=== PATIENT | male | born 1975 ===

== ENCOUNTER 2022-08-25 09:28 | Inpatient (IN) ==
[2022-08-25] MEDS ORDERED: Iodixanol (CONTRAST) 320 MG/ML 100 ML SDV IV ONE (10:03)
[2022-08-25] MEDS ORDERED: Lorazepam PYXIS KEY PRN (10:34)
[2022-08-25] MEDS ORDERED: LORazepam 2 mg VIAL 1 ml IV PUSH ONE (10:34)
[2022-08-25] MEDS ORDERED: LORazepam 2 mg VIAL 1 ml ONE (10:34)
[2022-08-25] MEDS ORDERED: levETIRAcetam IV 2,000 MG in NS 0.9% 100 ml BAG 100 ML IVPB ONE (10:37)
[2022-08-25] MEDS ORDERED: Morphine 4 MG/ML VIAL (1 ml) IV ONE ×2 (10:41→11:43)
[2022-08-25 11:02] LABS: INR 1.22 (0.88-1.18)
[2022-08-25 11:24] LABS: Albumin 4.2 g/dL (3.2-5.2); Albumin/Globulin Ratio 1.8 (1-3); Creatinine, Serum 0.73 mg/dL (0.67-1.17); Globulin 2.4 g/dL (2-4); HDL Cholesterol 34.6 mg/dL; Potassium 3.6 mmol/L (3.5-5.0); Total Bilirubin 0.6 mg/dL (0.2-1.0); Total Protein 6.6 g/dL (6.4-8.9); eGFR CKD-EPI 111.5 (>60)
[2022-08-25 11:28] LABS: ABS Lymphocytes 1.2 10^3/ul (1.0-4.8); ABS Monocytes 0.3 10^3/ul (0-0.8); ABS Neutrophils 2.1 10^3/ul (1.5-7.7); Eosinophil % 0.8 %; Hematocrit 40 % (42-52); Hemoglobin 13.2 g/dL (14.0-18.0); Lymphocyte % 33.4 %; Mean Corpuscular Hemoglobin 28 pg (27-31); Mean Corpuscular Hgb Conc 33 g/dL (31-36); Mean Corpuscular Volume 83 fL (80-94); Mean Platelet Volume 7.9 fL (7.4-10.4); Nucleated Red Blood Cells % 0.1; Platelet Count 172 10^3/uL (150-450); Red Blood Count 4.78 10^6 /uL (4.18-5.48); Red Cell Distribution Width 15 % (10-15); White Blood Count 3.7 10^3/uL (3.5-10.8)
[2022-08-25] MEDS ORDERED: Midazolam 2 mg/2 ml VIAL 1 mg/ml 2 ml VIAL (2 mg) ONE ×2 (11:44→15:03)
[2022-08-25] MEDS ORDERED: LEVETIRACETAM IVPB ONE (12:00)
[2022-08-25] MEDS ORDERED: NS 0.9% IVPB ONE (12:00)
[2022-08-25] MEDS ORDERED: Propofol 10 MG/ML 20 ML BTL ONE ×3 (13:31→15:02)
[2022-08-25] MEDS ORDERED: Phenylephrine 40 mcg/mL 10mL (400mcg) SYRINGE ONE ×2 (13:47→16:18)
[2022-08-25] MEDS ORDERED: Lidocaine 2% PF 5 ML VIAL ONE (14:59)
[2022-08-25] MEDS ORDERED: Sevoflurane BOTTLE ONE (14:59)
[2022-08-25] MEDS ORDERED: Ondansetron 4 mg VIAL 2 MG/ML 2 ml VIAL ONE (15:02)
[2022-08-25] MEDS ORDERED: fentaNYL 250 mcg/5 ml 50 MCG/ML 5 ml VIAL (250 MCG) ONE (15:02)
[2022-08-25] MEDS ORDERED: Dexamethasone IV 4 MG/ML VIAL 1 ml VIAL ONE (15:02)
[2022-08-25] MEDS ORDERED: Rocuronium 50 mg VIAL 10 mg/ml 5 ml VIAL (50 mg) ONE (15:03)
[2022-08-25] MEDS ORDERED: Bupivacaine 0.25% EPI 200,000 30 ML SDV ONE (15:15)
[2022-08-25] MEDS ORDERED: ceFAZolin VIAL VIAL ONE (16:02)
[2022-08-25] MEDS ORDERED: WATER ONE (16:02)
[2022-08-25] MEDS ORDERED: [UNRECOGNIZED DRUG - OTHER] ONE (16:02)
[2022-08-25] MEDS ORDERED: Phenylephrine IV 10 MG/ML 1 ml VIAL ONE (16:18)
[2022-08-25] MEDS ORDERED: Naloxone 0.4 mg VIAL 0.4 mg/ml 1 ml VIAL IV PUSH PRN (18:04)
[2022-08-25] MEDS ORDERED: Acetaminophen IV 1 GM/100ML 1,000 MG/100 ML BAG IV PRN (18:14)
[2022-08-25] MEDS ORDERED: fentaNYL 100 mcg/2 ml 50 MCG/ML VIAL IV PRN (18:33)
[2022-08-25] MEDS ORDERED: Naloxone 0.4 mg VIAL 0.4 mg/ml 1 ml VIAL IV PRN (18:33)
[2022-08-25] MEDS ORDERED: Ondansetron 4 mg VIAL 2 MG/ML 2 ml VIAL IV PRN (18:33)
[2022-08-25] MEDS: NS 0.9% 1000 ml BAG 1,000 ML IV SCH (18:43)
[2022-08-25] MEDS: HYDROmorphone PCA 20 MG/20 ML PCA.SYRING PCA SCH ×2 (19:05→20:29)
[2022-08-25] MEDS ORDERED: Acetaminophen IV 1 GM/100ML 1,000 MG/100 ML BAG IV SCH (23:00)
[2022-08-26] MEDS: levETIRAcetam IV 1,500 MG in NS 0.9% 100 ml BAG 100 ML IVPB SCH ×2 (00:22→11:41)
[2022-08-26 04:11] LABS: Urine Appearance Clear; Urine Bilirubin Negative (Negative); Urine Blood Negative (Negative); Urine Color Yellow; Urine Glucose Negative (Negative); Urine Ketones 1+ (Negative); Urine Nitrite Negative (Negative); Urine Protein Negative (Negative); Urine Specific Gravity 1.021 (1.002-1.030); Urine Urobilinogen Negative (Negative)
[2022-08-26] MEDS: NS 0.9% 1000 ml BAG 1,000 ML IV SCH ×2 (05:50→14:09)
[2022-08-26 06:05] LABS: ABS Lymphocytes 0.8 10^3/ul (1.0-4.8); ABS Monocytes 0.5 10^3/ul (0-0.8); ABS Neutrophils 7.2 10^3/ul (1.5-7.7); Hematocrit 38 % (42-52); Hemoglobin 12.7 g/dL (14.0-18.0); Lymphocyte % 9.4 %; Mean Corpuscular Hemoglobin 28 pg (27-31); Mean Corpuscular Hgb Conc 33 g/dL (31-36); Mean Corpuscular Volume 83 fL (80-94); Mean Platelet Volume 8.2 fL (7.4-10.4); Platelet Count 181 10^3/uL (150-450); Red Blood Count 4.58 10^6 /uL (4.18-5.48); Red Cell Distribution Width 15 % (10-15); White Blood Count 8.5 10^3/uL (3.5-10.8)
[2022-08-26 06:22] LABS: Calcium 8.6 mg/dL (8.6-10.3); Creatinine, Serum 0.68 mg/dL (0.67-1.17); Potassium 4.1 mmol/L (3.5-5.0); eGFR CKD-EPI 113.9 (>60)
[2022-08-26] MEDS ORDERED: Sulfur Hexaflouride MICROSPHR 25 MG VIAL ONE (08:50)
[2022-08-26] MEDS: Pantoprazole VIAL 40 MG VIAL IV SCH (11:41)
[2022-08-26] MEDS ORDERED: FOSPHENYTOIN IVPB ONE (16:00)
[2022-08-26] MEDS ORDERED: NS 0.9% IVPB ONE (16:00)
[2022-08-26] MEDS ORDERED: levETIRAcetam 500 MG IVPREMIX 500 MG/100 ML BAG IV SCH (16:00)
[2022-08-26] MEDS ORDERED: LEVETIRACETAM IVPB SCH (21:00)
[2022-08-26] MEDS ORDERED: NS 0.9% IVPB SCH (21:00)
[2022-08-26] MEDS ORDERED: levETIRAcetam IV 2,000 MG in NS 0.9% 100 ml BAG 100 ML IVPB SCH (21:00)
[2022-08-26] MEDS: Phenytoin 100 mg ER CAP PO SCH (22:26)
[2022-08-27] MEDS: NS 0.9% 1000 ml BAG 1,000 ML IV SCH ×2 (00:25→09:00)
[2022-08-27] MEDS: Pantoprazole VIAL 40 MG VIAL IV SCH (07:55)
[2022-08-27] MEDS: Morphine 2 MG/ML SYRINGE IV PRN ×2 (11:56→14:46)
[2022-08-27 16:06] LABS: ABS Lymphocytes 1.4 10^3/ul (1.0-4.8); ABS Monocytes 0.8 10^3/ul (0-0.8); ABS Neutrophils 9.4 10^3/ul (1.5-7.7); Eosinophil % 0.1 %; Hematocrit 40 % (42-52); Hemoglobin 13.4 g/dL (14.0-18.0); Lymphocyte % 12.3 %; Mean Corpuscular Hemoglobin 28 pg (27-31); Mean Corpuscular Hgb Conc 33 g/dL (31-36); Mean Corpuscular Volume 85 fL (80-94); Nucleated Red Blood Cells % 0.1; Red Blood Count 4.74 10^6 /uL (4.18-5.48); Red Cell Distribution Width 15 % (10-15); White Blood Count 11.7 10^3/uL (3.5-10.8)
[2022-08-27 16:19] LABS: Blood Urea Nitrogen 6 mg/dL (6-24); CO2 Carbon Dioxide 27 mmol/L (22-32); Calcium 7.9 mg/dL (8.6-10.3); Chloride 103 mmol/L (101-111); Creatinine, Serum 0.62 mg/dL (0.67-1.17); Glucose 119 mg/dL (70-100); Sodium 135 mmol/L (135-145); eGFR CKD-EPI 117.2 (>60)
[2022-08-27 16:28] LABS: Anion Gap 5 mmol/L (2-11)
[2022-08-27 16:36] LABS: Mean Platelet Volume 8.6 fL (7.4-10.4); Platelet Count 229 10^3/uL (150-450)
[2022-08-27] MEDS ORDERED: NS 0.9% 1000 ml BAG 1,000 ML IV ONE (16:43)
[2022-08-27] MEDS: Phenytoin 100 mg ER CAP PO SCH ×2 (21:18→21:19)
[2022-08-27] MEDS: Ondansetron 4 mg VIAL 2 MG/ML 2 ml VIAL IV PRN (23:34)
[2022-08-28] MEDS: NS 0.9% 1000 ml BAG 1,000 ML IV SCH (00:02)
[2022-08-28 07:55] LABS: ABS Lymphocytes 0.9 10^3/ul (1.0-4.8); ABS Monocytes 0.8 10^3/ul (0-0.8); ABS Neutrophils 10.3 10^3/ul (1.5-7.7); Hematocrit 36 % (42-52); Hemoglobin 12.1 g/dL (14.0-18.0); Lymphocyte % 7.8 %; Mean Corpuscular Hemoglobin 28 pg (27-31); Mean Corpuscular Hgb Conc 34 g/dL (31-36); Mean Corpuscular Volume 84 fL (80-94); Mean Platelet Volume 7.7 fL (7.4-10.4); Platelet Count 171 10^3/uL (150-450); Red Blood Count 4.33 10^6 /uL (4.18-5.48); Red Cell Distribution Width 15 % (10-15); White Blood Count 12.1 10^3/uL (3.5-10.8)
[2022-08-28] MEDS: Pantoprazole VIAL 40 MG VIAL IV SCH (09:00)
[2022-08-28 09:14] LABS: Calcium 7.9 mg/dL (8.6-10.3); Potassium 3.4 mmol/L (3.5-5.0)
[2022-08-28 09:20] LABS: Creatinine, Serum 0.62 mg/dL (0.67-1.17); eGFR CKD-EPI 117.2 (>60)
[2022-08-28] MEDS: D5W 1/2 NS KCl 20 meq 1000 ml 1,000 ML IV SCH (11:51)
[2022-08-28] MEDS ORDERED: Potassium Chlor 20 meq TAB.ER PO ONE (17:00)
[2022-08-28 17:31] LABS: Magnesium 1.6 mg/dL (1.9-2.7)
[2022-08-28] MEDS ORDERED: Magnesium Sulfate IV 3 GM in NS 0.9% 100 ml BAG 100 ML IVPB ONE (18:45)
[2022-08-28] MEDS: Phenytoin 100 mg ER CAP PO SCH (21:21)
[2022-08-29] MEDS: D5W 1/2 NS KCl 20 meq 1000 ml 1,000 ML IV SCH ×2 (04:23→19:52)
[2022-08-29] MEDS: Ondansetron 4 mg VIAL 2 MG/ML 2 ml VIAL IV PRN ×2 (04:33→15:27)
[2022-08-29 06:18] LABS: Urine Appearance Clear; Urine Bilirubin Negative (Negative); Urine Blood Negative (Negative); Urine Color Amber; Urine Glucose Negative (Negative); Urine Ketones Trace (Negative); Urine Nitrite Negative (Negative); Urine Protein 2+(100 mg/dL) (Negative); Urine Specific Gravity 1.027 (1.002-1.030); Urine Urobilinogen Positive (Negative)
[2022-08-29 06:29] LABS: ABS Lymphocytes 0.9 10^3/ul (1.0-4.8); ABS Monocytes 0.9 10^3/ul (0-0.8); Eosinophil % 0.3 %; Hematocrit 35 % (42-52); Hemoglobin 11.5 g/dL (14.0-18.0); Lymphocyte % 13.7 %; Mean Corpuscular Hemoglobin 28 pg (27-31); Mean Corpuscular Hgb Conc 33 g/dL (31-36); Mean Corpuscular Volume 85 fL (80-94); Mean Platelet Volume 8.6 fL (7.4-10.4); Nucleated Red Blood Cells % 0.1; Platelet Count 192 10^3/uL (150-450); Red Blood Count 4.08 10^6 /uL (4.18-5.48); Red Cell Distribution Width 15 % (10-15); White Blood Count 6.9 10^3/uL (3.5-10.8)
[2022-08-29 06:36] LABS: INR 1.16 (0.88-1.18)
[2022-08-29 06:37] LABS: Urine Bacteria Absent (Absent); Urine Red Blood Cell Absent (Absent); Urine White Blood Cell Trace(0-5/hpf) (Absent)
[2022-08-29 06:55] LABS: Creatinine, Serum 0.63 mg/dL (0.67-1.17); Magnesium 2.3 mg/dL (1.9-2.7); Potassium 3.9 mmol/L (3.5-5.0); eGFR CKD-EPI 116.6 (>60)
[2022-08-29] MEDS: Pantoprazole VIAL 40 MG VIAL IV SCH (09:13)
[2022-08-29] MEDS ORDERED: Lactated Ringers 1000 ml BAG 1,000 ML IV ONE (15:55)
[2022-08-29] MEDS: Phenytoin 100 mg ER CAP PO SCH (19:56)
[2022-08-30] MEDS: Pantoprazole VIAL 40 MG VIAL IV SCH (08:22)
[2022-08-30] MEDS: D5W 1/2 NS KCl 20 meq 1000 ml 1,000 ML IV SCH (11:55)
[2022-08-30] MEDS ORDERED: D5W 1/2 NS KCl 20 meq 1000 ml 1,000 ML IV SCH (17:26)
[2022-08-30] MEDS ORDERED: Dextrose 50% Syringe 50 ml 25 GM/50 ML SYRINGE IV PUSH PRN (20:20)
[2022-08-30] MEDS: Phenytoin 100 mg ER CAP PO SCH (21:05)
[2022-08-31 04:02] LABS: Hematocrit 36 % (42-52); Hemoglobin 11.8 g/dL (14.0-18.0); Mean Corpuscular Hemoglobin 28 pg (27-31); Mean Corpuscular Hgb Conc 33 g/dL (31-36); Mean Corpuscular Volume 86 fL (80-94); Mean Platelet Volume 8.1 fL (7.4-10.4); Platelet Count 260 10^3/uL (150-450); Red Cell Distribution Width 15 % (10-15); White Blood Count 7.5 10^3/uL (3.5-10.8)
[2022-08-31 04:39] LABS: Blood Urea Nitrogen 22 mg/dL (6-24); CO2 Carbon Dioxide 20 mmol/L (22-32); Chloride 103 mmol/L (101-111); Creatinine, Serum 0.66 mg/dL (0.67-1.17); Glucose 163 mg/dL (70-100); Magnesium 1.7 mg/dL (1.9-2.7); Sodium 134 mmol/L (135-145)
[2022-08-31 04:42] LABS: Anion Gap 11 mmol/L (2-11)
[2022-08-31 07:49] LABS: ABS Lymphocytes 0.9 10^3/ul (1.0-4.8); ABS Monocytes 1.2 10^3/ul (0-0.8); ABS Neutrophils 5.3 10^3/ul (1.5-7.7); Lymphocyte % 12.1 %; Nucleated Red Blood Cells % 0.2
[2022-08-31] MEDS ORDERED: Magnesium Sulfate IV 3 GM in NS 0.9% 100 ml BAG 100 ML IVPB ONE (08:02)
[2022-08-31] MEDS: Pantoprazole VIAL 40 MG VIAL IV SCH (10:30)
[2022-08-31] MEDS ORDERED: Lactated Ringers 1000 ml BAG 1,000 ML IV ONE (12:27)
[2022-08-31] MEDS ORDERED: Iohexol 350 (CONTRAST) 500 ML MDV IV ONE (12:47)
[2022-08-31 12:52] LABS: Phenytoin < 2.5 mcg/mL (10-20)
[2022-08-31] MEDS ORDERED: Iohexol 300 (CONTRAST) 10 ML SDV IV ONE (13:47)
[2022-08-31] MEDS ORDERED: Iodixanol (CONTRAST) 320 MG/ML 100 ML SDV IV ONE (14:34)
[2022-08-31 17:23] LABS: Hematocrit 35 % (42-52); Hemoglobin 11.6 g/dL (14.0-18.0); Mean Corpuscular Hemoglobin 28 pg (27-31); Mean Corpuscular Hgb Conc 33 g/dL (31-36); Mean Corpuscular Volume 84 fL (80-94); Mean Platelet Volume 7.8 fL (7.4-10.4); Platelet Count 288 10^3/uL (150-450); Red Blood Count 4.16 10^6 /uL (4.18-5.48); Red Cell Distribution Width 16 % (10-15); White Blood Count 9.8 10^3/uL (3.5-10.8)
[2022-08-31 18:03] LABS: ABS Lymphocytes 1.3 10^3/ul (1.0-4.8); ABS Neutrophils 6.5 10^3/ul (1.5-7.7); Eosinophil % 0.1 %; Lymphocyte % 12.9 %; Nucleated Red Blood Cells % 0.1
[2022-08-31] MEDS ORDERED: Fosphenytoin 1,000 MG in NS 0.9% 50 ML 50 ML IVPB ONE (21:00)
[2022-08-31] MEDS: Enoxaparin 40 MG/0.4 ML SYR SUBCUT SCH (22:12)
[2022-09-01] MEDS: Phenytoin 100 mg ER CAP PO SCH ×2 (08:40→20:02)
[2022-09-01] MEDS: Pantoprazole VIAL 40 MG VIAL IV SCH (08:40)
[2022-09-01] MEDS ORDERED: Morphine 2 MG/ML SYRINGE IV PRN (14:17)
[2022-09-01] MEDS: Morphine 2 MG/ML SYRINGE IV PRN ×2 (17:42→20:03)
[2022-09-01] MEDS ORDERED: Iodixanol (CONTRAST) 320 MG/ML 100 ML SDV IV ONE (18:25)
[2022-09-01] MEDS: Enoxaparin 40 MG/0.4 ML SYR SUBCUT SCH (20:03)
[2022-09-02] MEDS: Morphine 2 MG/ML SYRINGE IV PRN ×6 (00:44→16:30)
[2022-09-02 09:34] LABS: Hematocrit 35 % (42-52); Hemoglobin 11.5 g/dL (14.0-18.0); Mean Corpuscular Hemoglobin 27 pg (27-31); Mean Corpuscular Hgb Conc 33 g/dL (31-36); Mean Corpuscular Volume 84 fL (80-94); Mean Platelet Volume 7.9 fL (7.4-10.4); Platelet Count 335 10^3/uL (150-450); Red Blood Count 4.18 10^6 /uL (4.18-5.48); Red Cell Distribution Width 16 % (10-15); White Blood Count 20.8 10^3/uL (3.5-10.8)
[2022-09-02 09:56] LABS: Calcium 8.2 mg/dL (8.6-10.3); Creatinine, Serum 0.68 mg/dL (0.67-1.17); Magnesium 1.9 mg/dL (1.9-2.7); Potassium 4.4 mmol/L (3.5-5.0); eGFR CKD-EPI 113.9 (>60)
[2022-09-02] MEDS: Phenytoin 100 mg ER CAP PO SCH ×2 (10:01→23:04)
[2022-09-02 10:03] LABS: CO2 Carbon Dioxide 16 mmol/L (22-32); Calcium 8.1 mg/dL (8.6-10.3); Chloride 100 mmol/L (101-111); Magnesium 1.9 mg/dL (1.9-2.7); Sodium 133 mmol/L (135-145)
[2022-09-02] MEDS: Pantoprazole VIAL 40 MG VIAL IV SCH (10:03)
[2022-09-02 10:06] LABS: C Reactive Protein 325.6 mg/L (<8.01)
[2022-09-02 10:07] LABS: Anisocytosis 1+; Polychromasia 1+
[2022-09-02 10:07] LABS: Anion Gap 17 mmol/L (2-11)
[2022-09-02 10:08] LABS: ABS Basophils 0.1 10^3/ul (0-0.2); ABS Lymphocytes 2.2 10^3/ul (1.0-4.8); ABS Monocytes 2.8 10^3/ul (0-0.8); ABS Neutrophils 15.7 10^3/ul (1.5-7.7); Eosinophil % 0.1 %; Lymphocyte % 10.6 %; Nucleated Red Blood Cells % 0.2
[2022-09-02 10:09] LABS: Blood Urea Nitrogen 28 mg/dL (6-24); Creatinine, Serum 0.69 mg/dL (0.67-1.17); Glucose 110 mg/dL (70-100); eGFR CKD-EPI 113.4 (>60)
[2022-09-02] MEDS: Ondansetron 4 mg VIAL 2 MG/ML 2 ml VIAL IV PRN ×2 (10:10→16:55)
[2022-09-02] MEDS ORDERED: Zosyn per Pharmacy NOTE FOLLOW UP SCH (11:00)
[2022-09-02] MEDS ORDERED: Lactated Ringers 1000 ml BAG 1,000 ML IV SCH (11:00)
[2022-09-02] MEDS ORDERED: Piperacillin/Tazobac ADVAN 3.375 GM in NS 0.9% 100 ml BAG 100 ML IV ONE (11:00)
[2022-09-02] MEDS ORDERED: Iodixanol (CONTRAST) 320 MG/ML 100 ML SDV IV ONE (11:52)
[2022-09-02 12:02] LABS: High Sensitivity Troponin 1 Hr 16 pg/mL (<20)
[2022-09-02] MEDS ORDERED: Lidocaine 1% MPF 5 ML VIAL INJ ONE (13:17)
[2022-09-02] MEDS ORDERED: Benzocaine (plain) Lozenge 15 MG MT PRN (16:44)
[2022-09-02] MEDS: ZOSYN 3.375 GM Q8H per EXTENDED INFUSION IV SCH ×2 (16:57→23:28)
[2022-09-02] MEDS: Enoxaparin 40 MG/0.4 ML SYR SUBCUT SCH (23:25)
[2022-09-02] MEDS: risperiDONE-M 1 mg Oradis TAB PO SCH (23:26)
[2022-09-03] MEDS: PHENYTOIN IV SCH ×4 (00:08→20:41)
[2022-09-03] MEDS: NS 0.9% IV SCH ×4 (00:08→20:41)
[2022-09-03 04:43] LABS: Urine Appearance Clear; Urine Bilirubin 1+ (Negative); Urine Blood Negative (Negative); Urine Color Amber; Urine Glucose Negative (Negative); Urine Ketones 1+ (Negative); Urine Nitrite Negative (Negative); Urine Protein 1+(30 mg/dL) (Negative); Urine Specific Gravity 1.036 (1.002-1.030); Urine Urobilinogen Negative (Negative)
[2022-09-03 05:00] LABS: Urine Bacteria Absent (Absent); Urine Red Blood Cell Absent (Absent); Urine Sperm Present (Absent); Urine Squamous Epithelial Cell Present (Absent); Urine White Blood Cell Trace(0-5/hpf) (Absent); Urine Yeast Present (Absent)
[2022-09-03 06:53] LABS: Hematocrit 32 % (42-52); Hemoglobin 10.6 g/dL (14.0-18.0); Mean Corpuscular Hemoglobin 28 pg (27-31); Mean Corpuscular Hgb Conc 33 g/dL (31-36); Mean Corpuscular Volume 85 fL (80-94); Mean Platelet Volume 7.9 fL (7.4-10.4); Platelet Count 331 10^3/uL (150-450); Red Blood Count 3.72 10^6 /uL (4.18-5.48); Red Cell Distribution Width 16 % (10-15); White Blood Count 16.5 10^3/uL (3.5-10.8)
[2022-09-03 06:54] LABS: ABS Lymphocytes 1.9 10^3/ul (1.0-4.8); ABS Neutrophils 12.5 10^3/ul (1.5-7.7); Eosinophil % 0.2 %; Lymphocyte % 11.6 %; Nucleated Red Blood Cells % 0.1
[2022-09-03 07:22] LABS: High Sens Troponin Baseline 11 pg/mL (<20)
[2022-09-03 07:42] LABS: Anion Gap 9 mmol/L (2-11); Blood Urea Nitrogen 23 mg/dL (6-24); C Reactive Protein 372.21 mg/L (<8.01); CO2 Carbon Dioxide 27 mmol/L (22-32); Chloride 98 mmol/L (101-111); Creatinine, Serum 0.73 mg/dL (0.67-1.17); Glucose 77 mg/dL (70-100); Phenytoin < 2.5 mcg/mL (10-20); Potassium 3.9 mmol/L (3.5-5.0); Sodium 134 mmol/L (135-145); eGFR CKD-EPI 111.5 (>60)
[2022-09-03] MEDS: Morphine 2 MG/ML SYRINGE IV PRN ×4 (07:45→20:41)
[2022-09-03] MEDS: ZOSYN 3.375 GM Q8H per EXTENDED INFUSION IV SCH ×2 (08:37→16:53)
[2022-09-03] MEDS: Pantoprazole VIAL 40 MG VIAL IV SCH (08:37)
[2022-09-03] MEDS ORDERED: Lactated Ringers 1000 ml BAG 1,000 ML IV ONE (10:27)
[2022-09-03] MEDS: risperiDONE-M 1 mg Oradis TAB PO SCH (10:27)
[2022-09-03] MEDS ORDERED: NS 0.9% 1000 ml BAG 1,000 ML IV SCH (12:45)
[2022-09-03] MEDS ORDERED: NS 0.9% 1000 ml BAG 1,000 ML IV ONE (19:10)
[2022-09-03] MEDS ORDERED: Acetaminophen IV 1 GM/100ML 1,000 MG/100 ML BAG IV PRN (19:44)
[2022-09-03] MEDS: Enoxaparin 40 MG/0.4 ML SYR SUBCUT SCH (20:42)
[2022-09-03] MEDS ORDERED: Lactated Ringers 1000 ml BAG 1,000 ML IV SCH (22:00)
[2022-09-03] MEDS ORDERED: ZOSYN 3.375 GM Q8H per EXTENDED INFUSION IV SCH (23:00)
[2022-09-04] MEDS: NS 0.9% IV SCH ×3 (01:02→17:27)
[2022-09-04] MEDS: PHENYTOIN IV SCH ×3 (01:02→17:27)
[2022-09-04] MEDS: ZOSYN 3.375 GM Q6H - Intermittant 30 min Infusion IV SCH ×5 (01:03→17:48)
[2022-09-04] MEDS ORDERED: Lactated Ringers 1000 ml BAG 1,000 ML IV SCH (04:05)
[2022-09-04] MEDS: Morphine 2 MG/ML SYRINGE IV PRN ×6 (06:36→21:49)
[2022-09-04] MEDS: Pantoprazole VIAL 40 MG VIAL IV SCH (08:33)
[2022-09-04 08:36] LABS: Anion Gap 11 mmol/L (2-11); CO2 Carbon Dioxide 22 mmol/L (22-32); Calcium 7.6 mg/dL (8.6-10.3); Chloride 101 mmol/L (101-111); Potassium 3.7 mmol/L (3.5-5.0); Sodium 134 mmol/L (135-145)
[2022-09-04 08:42] LABS: Blood Urea Nitrogen 12 mg/dL (6-24); C Reactive Protein 318.23 mg/L (<8.01); Creatinine, Serum 0.52 mg/dL (0.67-1.17); Glucose 63 mg/dL (70-100); Phenytoin < 2.5 mcg/mL (10-20); eGFR CKD-EPI 123.6 (>60)
[2022-09-04] MEDS ORDERED: Iodixanol (CONTRAST) 320 MG/ML 100 ML SDV IV ONE (09:16)
[2022-09-04] MEDS ORDERED: Iodixanol (CONTRAST) 320 MG/ML 100 ML SDV IV SCH (09:16)
[2022-09-04] MEDS ORDERED: NS 0.9% 1000 ml BAG 1,000 ML IV SCH (10:00)
[2022-09-04] MEDS: Fosphenytoin 100 MG in NS 0.9% 50 ML IVPB SCH ×2 (14:56→20:43)
[2022-09-04] MEDS ORDERED: PPN (PERIPHERAL) 24 HR with D10W 1000 ml BAG 1,000 ML, Amino Acid Infusion 10% 850 ML, ... IV SCH (17:00)
[2022-09-04] MEDS: NS 0.9% 1000 ml BAG 1,000 ML IV SCH (17:48)
[2022-09-04 18:09] LABS: Hematocrit 28 % (42-52); Mean Corpuscular Hemoglobin 27 pg (27-31); Mean Corpuscular Hgb Conc 32 g/dL (31-36); Mean Corpuscular Volume 85 fL (80-94); Mean Platelet Volume 7.3 fL (7.4-10.4); Platelet Count 332 10^3/uL (150-450); Red Blood Count 3.33 10^6 /uL (4.18-5.48); Red Cell Distribution Width 16 % (10-15); White Blood Count 8.2 10^3/uL (3.5-10.8)
[2022-09-04 19:03] LABS: ABS Lymphocytes 1.9 10^3/ul (1.0-4.8); ABS Monocytes 0.8 10^3/ul (0-0.8); ABS Neutrophils 5.5 10^3/ul (1.5-7.7); Eosinophil % 0.3 %; Lymphocyte % 23.3 %; Nucleated Red Blood Cells % 0.2
[2022-09-04] MEDS: Enoxaparin 40 MG/0.4 ML SYR SUBCUT SCH (20:50)
[2022-09-05] MEDS: ZOSYN 3.375 GM Q6H - Intermittant 30 min Infusion IV SCH ×4 (00:09→17:57)
[2022-09-05] MEDS: Morphine 2 MG/ML SYRINGE IV PRN ×3 (01:52→20:03)
[2022-09-05] MEDS: Fosphenytoin 100 MG in NS 0.9% 50 ML IVPB SCH ×4 (02:34→22:06)
[2022-09-05 06:42] LABS: Hematocrit 28 % (42-52); Hemoglobin 9.1 g/dL (14.0-18.0); Mean Corpuscular Hemoglobin 28 pg (27-31); Mean Corpuscular Hgb Conc 33 g/dL (31-36); Mean Corpuscular Volume 86 fL (80-94); Mean Platelet Volume 7.5 fL (7.4-10.4); Platelet Count 301 10^3/uL (150-450); Red Blood Count 3.21 10^6 /uL (4.18-5.48); Red Cell Distribution Width 16 % (10-15); White Blood Count 7.8 10^3/uL (3.5-10.8)
[2022-09-05 06:43] LABS: ABS Lymphocytes 1.4 10^3/ul (1.0-4.8); ABS Monocytes 0.8 10^3/ul (0-0.8); ABS Neutrophils 5.5 10^3/ul (1.5-7.7); Eosinophil % 0.3 %; Lymphocyte % 18.4 %; Nucleated Red Blood Cells % 0.3
[2022-09-05 07:10] LABS: Albumin 2.2 g/dL (3.2-5.2); Calcium 7.3 mg/dL (8.6-10.3); Creatinine, Serum 0.39 mg/dL (0.67-1.17); Globulin 2.3 g/dL (2-4); Magnesium 1.6 mg/dL (1.9-2.7); Phosphorus 3.6 mg/dL (2.5-5.0); Potassium 3.6 mmol/L (3.5-5.0); Total Bilirubin 0.6 mg/dL (0.2-1.0); Total Protein 4.5 g/dL (6.4-8.9); eGFR CKD-EPI 134.8 (>60)
[2022-09-05] MEDS: PHENYTOIN IV SCH ×2 (07:12→07:13)
[2022-09-05] MEDS: NS 0.9% IV SCH ×2 (07:12→07:13)
[2022-09-05] MEDS: Pantoprazole VIAL 40 MG VIAL IV SCH (08:10)
[2022-09-05] MEDS ORDERED: Magnesium Sulfate 2 gm BAG 2 GM/50 ML BAG IVPB ONE (09:03)
[2022-09-05] MEDS: NS 0.9% 1000 ml BAG 1,000 ML IV SCH (09:45)
[2022-09-05] MEDS: Valproic Acid IV 500 MG in NS 0.9% 100 ml BAG 100 ML IVPB SCH ×2 (11:43→19:57)
[2022-09-05] MEDS ORDERED: TPN CENTRAL STANDARD BASE A CENT\\PICC SCH (17:00)
[2022-09-05] MEDS ORDERED: Lactated Ringers 1000 ml BAG 1,000 ML IV SCH (20:00)
[2022-09-05] MEDS: Enoxaparin 40 MG/0.4 ML SYR SUBCUT SCH (20:02)
[2022-09-06] MEDS: ZOSYN 3.375 GM Q6H - Intermittant 30 min Infusion IV SCH ×4 (00:54→17:26)
[2022-09-06] MEDS: Fosphenytoin 100 MG in NS 0.9% 50 ML IVPB SCH ×3 (02:49→17:09)
[2022-09-06] MEDS: Valproic Acid IV 500 MG in NS 0.9% 100 ml BAG 100 ML IVPB SCH ×3 (03:21→20:26)
[2022-09-06] MEDS: Morphine 2 MG/ML SYRINGE IV PRN ×4 (04:20→20:20)
[2022-09-06 04:31] LABS: Hematocrit 29 % (42-52); Hemoglobin 9.5 g/dL (14.0-18.0); Mean Corpuscular Hemoglobin 28 pg (27-31); Mean Corpuscular Hgb Conc 33 g/dL (31-36); Mean Corpuscular Volume 84 fL (80-94); Mean Platelet Volume 7.3 fL (7.4-10.4); Platelet Count 319 10^3/uL (150-450); Red Blood Count 3.46 10^6 /uL (4.18-5.48); Red Cell Distribution Width 15 % (10-15); White Blood Count 7.2 10^3/uL (3.5-10.8)
[2022-09-06 04:54] LABS: ABS Lymphocytes 1.5 10^3/ul (1.0-4.8); ABS Monocytes 0.7 10^3/ul (0-0.8); Eosinophil % 0.5 %; Lymphocyte % 20.6 %; Nucleated Red Blood Cells % 0.2
[2022-09-06 05:13] LABS: Albumin 2.1 g/dL (3.2-5.2); Albumin/Globulin Ratio 0.8 (1-3); Calcium 7.4 mg/dL (8.6-10.3); Creatinine, Serum 0.37 mg/dL (0.67-1.17); Globulin 2.7 g/dL (2-4); Magnesium 1.8 mg/dL (1.9-2.7); Phosphorus 3.5 mg/dL (2.5-5.0); Potassium 3.5 mmol/L (3.5-5.0); Total Bilirubin 0.5 mg/dL (0.2-1.0); Total Protein 4.8 g/dL (6.4-8.9); eGFR CKD-EPI 136.9 (>60)
[2022-09-06] MEDS: Pantoprazole VIAL 40 MG VIAL IV SCH (10:33)
[2022-09-06] MEDS: NS 0.9% 1000 ml BAG 1,000 ML IV SCH (14:02)
[2022-09-06] MEDS: TPN 24 HR with Sodium Chloride CONC. 4 MEQ/ML 100 MEQ, Potassium Chloride TPN 50 MEQ, P... CENT\\PICC SCH (17:07)
[2022-09-06] MEDS: Enoxaparin 40 MG/0.4 ML SYR SUBCUT SCH (20:20)
[2022-09-07] MEDS: ZOSYN 3.375 GM Q6H - Intermittant 30 min Infusion IV SCH ×3 (00:58→12:21)
[2022-09-07] MEDS: Morphine 2 MG/ML SYRINGE IV PRN ×6 (02:55→20:59)
[2022-09-07] MEDS: Valproic Acid IV 500 MG in NS 0.9% 100 ml BAG 100 ML IVPB SCH ×3 (03:02→21:02)
[2022-09-07 07:15] LABS: Calcium 7.5 mg/dL (8.6-10.3); Creatinine, Serum 0.37 mg/dL (0.67-1.17); Magnesium 1.9 mg/dL (1.9-2.7); Phosphorus 3.5 mg/dL (2.5-5.0); Potassium 3.8 mmol/L (3.5-5.0); eGFR CKD-EPI 136.9 (>60)
[2022-09-07] MEDS: Pantoprazole VIAL 40 MG VIAL IV SCH (08:41)
[2022-09-07 09:41] LABS: Hematocrit 31 % (42-52); Hemoglobin 9.8 g/dL (14.0-18.0); Mean Corpuscular Hemoglobin 27 pg (27-31); Mean Corpuscular Hgb Conc 32 g/dL (31-36); Mean Corpuscular Volume 84 fL (80-94); Mean Platelet Volume 7.7 fL (7.4-10.4); Platelet Count 353 10^3/uL (150-450); Red Blood Count 3.63 10^6 /uL (4.18-5.48); Red Cell Distribution Width 15 % (10-15); White Blood Count 6.6 10^3/uL (3.5-10.8)
[2022-09-07 10:18] LABS: ABS Lymphocytes 1.6 10^3/ul (1.0-4.8); ABS Monocytes 0.4 10^3/ul (0-0.8); ABS Neutrophils 4.6 10^3/ul (1.5-7.7); Eosinophil % 0.4 %; Lymphocyte % 23.6 %; Nucleated Red Blood Cells % 0.2
[2022-09-07] MEDS: NS 0.9% 1000 ml BAG 1,000 ML IV SCH (11:47)
[2022-09-07] MEDS: Octreotide Acetate 50 MCG/ML ML SUBCUT SCH (12:20)
[2022-09-07] MEDS: TPN 24 HR with Sodium Chloride CONC. 4 MEQ/ML 100 MEQ, Potassium Chloride TPN 50 MEQ, P... CENT\\PICC SCH (16:57)
[2022-09-07] MEDS: Enoxaparin 40 MG/0.4 ML SYR SUBCUT SCH (21:00)
[2022-09-08] MEDS: Morphine 2 MG/ML SYRINGE IV PRN ×9 (00:14→23:19)
[2022-09-08] MEDS: Octreotide Acetate 50 MCG/ML ML SUBCUT SCH ×2 (00:16→08:32)
[2022-09-08] MEDS: Valproic Acid IV 500 MG in NS 0.9% 100 ml BAG 100 ML IVPB SCH ×3 (01:57→18:58)
[2022-09-08 06:25] LABS: Calcium 7.7 mg/dL (8.6-10.3); Creatinine, Serum 0.37 mg/dL (0.67-1.17); Magnesium 1.9 mg/dL (1.9-2.7); Phosphorus 3.4 mg/dL (2.5-5.0); Potassium 4.3 mmol/L (3.5-5.0); eGFR CKD-EPI 136.9 (>60)
[2022-09-08] MEDS: NS 0.9% 1000 ml BAG 1,000 ML IV SCH (08:29)
[2022-09-08] MEDS: Pantoprazole VIAL 40 MG VIAL IV SCH (08:29)
[2022-09-08] MEDS: TPN 24 HR with Sodium Chloride CONC. 4 MEQ/ML 100 MEQ, Potassium Chloride TPN 50 MEQ, P... CENT\\PICC SCH (17:08)
[2022-09-08] MEDS: Enoxaparin 40 MG/0.4 ML SYR SUBCUT SCH (20:51)
[2022-09-09] MEDS: Morphine 2 MG/ML SYRINGE IV PRN ×7 (01:34→20:56)
[2022-09-09] MEDS: Valproic Acid IV 500 MG in NS 0.9% 100 ml BAG 100 ML IVPB SCH ×3 (03:18→18:26)
[2022-09-09 06:44] LABS: Albumin 2.6 g/dL (3.2-5.2); Albumin/Globulin Ratio 0.8 (1-3); Creatinine, Serum 0.37 mg/dL (0.67-1.17); Globulin 3.1 g/dL (2-4); Magnesium 1.9 mg/dL (1.9-2.7); Phosphorus 3.6 mg/dL (2.5-5.0); Potassium 4.5 mmol/L (3.5-5.0); Total Bilirubin 0.4 mg/dL (0.2-1.0); Total Protein 5.7 g/dL (6.4-8.9); eGFR CKD-EPI 136.9 (>60)
[2022-09-09] MEDS: NS 0.9% 1000 ml BAG 1,000 ML IV SCH (06:48)
[2022-09-09] MEDS: Pantoprazole VIAL 40 MG VIAL IV SCH (09:15)
[2022-09-09] MEDS: TPN 24 HR with Sodium Chloride CONC. 4 MEQ/ML 100 MEQ, Potassium Chloride TPN 50 MEQ, P... CENT\\PICC SCH (17:03)
[2022-09-09] MEDS: Enoxaparin 40 MG/0.4 ML SYR SUBCUT SCH (20:41)
[2022-09-10] MEDS: Morphine 2 MG/ML SYRINGE IV PRN ×6 (02:01→21:46)
[2022-09-10] MEDS: Valproic Acid IV 500 MG in NS 0.9% 100 ml BAG 100 ML IVPB SCH ×3 (02:40→20:39)
[2022-09-10 06:54] LABS: Hematocrit 36 % (42-52); Hemoglobin 11.1 g/dL (14.0-18.0); Mean Corpuscular Hemoglobin 31 pg (27-31); Mean Corpuscular Hgb Conc 31 g/dL (31-36); Mean Corpuscular Volume 100 fL (80-94); Mean Platelet Volume 8.3 fL (7.4-10.4); Platelet Count 304 10^3/uL (150-450); Red Blood Count 3.59 10^6 /uL (4.18-5.48); Red Cell Distribution Width 17 % (10-15); White Blood Count 9.2 10^3/uL (3.5-10.8)
[2022-09-10] MEDS: Pantoprazole VIAL 40 MG VIAL IV SCH (08:29)
[2022-09-10 08:39] LABS: ABS Eosinophils 0.1 10^3/ul (0-0.6); ABS Lymphocytes 0.7 10^3/ul (1.0-4.8); ABS Monocytes 0.4 10^3/ul (0-0.8); Eosinophil % 0.8 %; Lymphocyte % 7.8 %; Nucleated Red Blood Cells % 0.1
[2022-09-10] MEDS: TPN 24 HR with Sodium Chloride CONC. 4 MEQ/ML 100 MEQ, Potassium Chloride TPN 50 MEQ, P... CENT\\PICC SCH (17:24)
[2022-09-10] MEDS: Enoxaparin 40 MG/0.4 ML SYR SUBCUT SCH (20:42)
[2022-09-11] MEDS: Morphine 2 MG/ML SYRINGE IV PRN ×5 (03:43→22:52)
[2022-09-11] MEDS: Valproic Acid IV 500 MG in NS 0.9% 100 ml BAG 100 ML IVPB SCH ×3 (04:02→18:43)
[2022-09-11] MEDS: Pantoprazole VIAL 40 MG VIAL IV SCH (10:08)
[2022-09-11] MEDS: TPN 24 HR with Sodium Chloride CONC. 4 MEQ/ML 100 MEQ, Potassium Chloride TPN 50 MEQ, P... CENT\\PICC SCH (17:39)
[2022-09-11] MEDS: Enoxaparin 40 MG/0.4 ML SYR SUBCUT SCH (22:44)
[2022-09-12] MEDS: Valproic Acid IV 500 MG in NS 0.9% 100 ml BAG 100 ML IVPB SCH ×3 (02:48→21:42)
[2022-09-12] MEDS: Morphine 2 MG/ML SYRINGE IV PRN ×5 (06:38→22:48)
[2022-09-12] MEDS: Pantoprazole VIAL 40 MG VIAL IV SCH (08:23)
[2022-09-12] MEDS ORDERED: Iohexol 300 (CONTRAST) 10 ML SDV IV ONE (12:49)
[2022-09-12] MEDS: TPN 24 HR with Sodium Chloride CONC. 4 MEQ/ML 100 MEQ, Potassium Chloride TPN 50 MEQ, P... CENT\\PICC SCH (17:35)
[2022-09-12] MEDS: Enoxaparin 40 MG/0.4 ML SYR SUBCUT SCH (21:40)
[2022-09-13] MEDS: Morphine 2 MG/ML SYRINGE IV PRN ×5 (03:22→21:37)
[2022-09-13] MEDS: Valproic Acid IV 500 MG in NS 0.9% 100 ml BAG 100 ML IVPB SCH ×3 (06:21→21:37)
[2022-09-13] MEDS: Pantoprazole VIAL 40 MG VIAL IV SCH (08:19)
[2022-09-13 11:41] LABS: Albumin 2.9 g/dL (3.2-5.2); Albumin/Globulin Ratio 0.9 (1-3); Calcium 8.3 mg/dL (8.6-10.3); Creatinine, Serum 0.35 mg/dL (0.67-1.17); Globulin 3.4 g/dL (2-4); Magnesium 1.8 mg/dL (1.9-2.7); Phosphorus 4.5 mg/dL (2.5-5.0); Potassium 4.6 mmol/L (3.5-5.0); Total Bilirubin 0.4 mg/dL (0.2-1.0); Total Protein 6.3 g/dL (6.4-8.9); eGFR CKD-EPI 139.3 (>60)
[2022-09-13] MEDS: TPN 24 HR with Sodium Chloride CONC. 4 MEQ/ML 100 MEQ, Potassium Chloride TPN 50 MEQ, P... CENT\\PICC SCH (17:34)
[2022-09-13] MEDS: Enoxaparin 40 MG/0.4 ML SYR SUBCUT SCH (21:22)
[2022-09-14] MEDS: Morphine 2 MG/ML SYRINGE IV PRN ×4 (06:00→21:26)
[2022-09-14] MEDS: Valproic Acid IV 500 MG in NS 0.9% 100 ml BAG 100 ML IVPB SCH ×3 (06:00→21:26)
[2022-09-14] MEDS: Pantoprazole VIAL 40 MG VIAL IV SCH (07:40)
[2022-09-14] MEDS: TPN 24 HR with Sodium Chloride CONC. 4 MEQ/ML 100 MEQ, Potassium Chloride TPN 50 MEQ, P... CENT\\PICC SCH (16:43)
[2022-09-14] MEDS: Enoxaparin 40 MG/0.4 ML SYR SUBCUT SCH (21:27)
[2022-09-15] MEDS: Valproic Acid IV 500 MG in NS 0.9% 100 ml BAG 100 ML IVPB SCH (06:04)
[2022-09-15] MEDS: Morphine 2 MG/ML SYRINGE IV PRN ×3 (06:04→16:29)
[2022-09-15] MEDS: TPN 24 HR with Sodium Chloride CONC. 4 MEQ/ML 100 MEQ, Potassium Chloride TPN 50 MEQ, P... CENT\\PICC SCH (16:34)
[2022-09-15] MEDS: Enoxaparin 40 MG/0.4 ML SYR SUBCUT SCH (21:16)
[2022-09-16] MEDS: Morphine 2 MG/ML SYRINGE IV PRN ×2 (05:29→22:51)
[2022-09-16 06:09] LABS: Albumin 3.1 g/dL (3.2-5.2); Calcium 8.1 mg/dL (8.6-10.3); Magnesium 1.7 mg/dL (1.9-2.7); Potassium 4.4 mmol/L (3.5-5.0); Total Bilirubin 0.4 mg/dL (0.2-1.0)
[2022-09-16 06:16] LABS: Creatinine, Serum 0.38 mg/dL (0.67-1.17); Phosphorus 3.9 mg/dL (2.5-5.0); Total Protein 6.1 g/dL (6.4-8.9); eGFR CKD-EPI 135.8 (>60)
[2022-09-16] MEDS ORDERED: Magnesium Sulfate 2 gm BAG 2 GM/50 ML BAG IVPB ONE (07:43)
[2022-09-16] MEDS ORDERED: Dextrose 50% Syringe 50 ml 25 GM/50 ML SYRINGE IV PUSH PRN (14:33)
[2022-09-16] MEDS: TPN 24 HR with Sodium Chloride CONC. 4 MEQ/ML 100 MEQ, Potassium Chloride TPN 50 MEQ, P... CENT\\PICC SCH (17:05)
[2022-09-16] MEDS: Enoxaparin 40 MG/0.4 ML SYR SUBCUT SCH (21:53)
[2022-09-17] MEDS: Morphine 2 MG/ML SYRINGE IV PRN ×5 (06:37→20:35)
[2022-09-17 07:03] LABS: Hematocrit 34 % (42-52); Hemoglobin 11.2 g/dL (14.0-18.0); Mean Corpuscular Hemoglobin 28 pg (27-31); Mean Corpuscular Hgb Conc 33 g/dL (31-36); Mean Corpuscular Volume 85 fL (80-94); Mean Platelet Volume 8.4 fL (7.4-10.4); Platelet Count 228 10^3/uL (150-450); Red Blood Count 3.97 10^6 /uL (4.18-5.48); Red Cell Distribution Width 15 % (10-15)
[2022-09-17 07:09] LABS: ABS Lymphocytes 1.3 10^3/ul (1.0-4.8); ABS Monocytes 0.6 10^3/ul (0-0.8); ABS Neutrophils 2.2 10^3/ul (1.5-7.7); Eosinophil % 0.2 %
[2022-09-17 07:19] LABS: Calcium 8.3 mg/dL (8.6-10.3); Creatinine, Serum 0.43 mg/dL (0.67-1.17); Magnesium 1.6 mg/dL (1.9-2.7); Potassium 4.2 mmol/L (3.5-5.0); eGFR CKD-EPI 130.9 (>60)
[2022-09-17] MEDS ORDERED: Magnesium Sulfate 2 gm BAG 2 GM/50 ML BAG IVPB ONE (07:36)
[2022-09-17] MEDS: TPN 24 HR with Sodium Chloride CONC. 4 MEQ/ML 100 MEQ, Potassium Chloride TPN 50 MEQ, P... CENT\\PICC SCH (17:05)
[2022-09-17] MEDS: Enoxaparin 40 MG/0.4 ML SYR SUBCUT SCH (20:29)
[2022-09-18] MEDS: Morphine 2 MG/ML SYRINGE IV PRN ×7 (01:48→21:18)
[2022-09-18] MEDS: TPN 24 HR with Sodium Chloride CONC. 4 MEQ/ML 100 MEQ, Potassium Chloride TPN 50 MEQ, P... CENT\\PICC SCH (16:11)
[2022-09-18] MEDS: Enoxaparin 40 MG/0.4 ML SYR SUBCUT SCH (21:17)
[2022-09-19] MEDS: Morphine 2 MG/ML SYRINGE IV PRN ×6 (02:00→21:57)
[2022-09-19 05:45] LABS: Albumin 3.3 g/dL (3.2-5.2); Albumin/Globulin Ratio 0.9 (1-3); Calcium 8.2 mg/dL (8.6-10.3); Creatinine, Serum 0.47 mg/dL (0.67-1.17); Globulin 3.5 g/dL (2-4); Magnesium 1.7 mg/dL (1.9-2.7); Phosphorus 3.2 mg/dL (2.5-5.0); Potassium 4.7 mmol/L (3.5-5.0); Total Bilirubin 0.4 mg/dL (0.2-1.0); Total Protein 6.8 g/dL (6.4-8.9); eGFR CKD-EPI 127.4 (>60)
[2022-09-19] MEDS: Multivitamins ADULT w/MIN LIQ 15 ML UDC PO SCH (13:28)
[2022-09-19] MEDS: Magnesium Sulfate 2 GM IV (Premix) IVPB SCH (13:29)
[2022-09-19] MEDS: TPN 24 HR with Sodium Chloride CONC. 4 MEQ/ML 100 MEQ, Potassium Chloride TPN 50 MEQ, P... CENT\\PICC SCH (16:55)
[2022-09-19] MEDS: Enoxaparin 40 MG/0.4 ML SYR SUBCUT SCH (21:56)
[2022-09-20] MEDS: Morphine 2 MG/ML SYRINGE IV PRN ×4 (05:38→22:09)
[2022-09-20 06:49] LABS: Albumin 3.1 g/dL (3.2-5.2); Calcium 8.1 mg/dL (8.6-10.3); Creatinine, Serum 0.45 mg/dL (0.67-1.17); Magnesium 1.7 mg/dL (1.9-2.7); Phosphorus 2.7 mg/dL (2.5-5.0); Potassium 4.5 mmol/L (3.5-5.0); Total Bilirubin 0.4 mg/dL (0.2-1.0); Total Protein 6.1 g/dL (6.4-8.9); eGFR CKD-EPI 129.1 (>60)
[2022-09-20] MEDS: Magnesium Sulfate 2 GM IV (Premix) IVPB SCH (08:59)
[2022-09-20] MEDS: Multivitamins ADULT w/MIN LIQ 15 ML UDC PO SCH (09:53)
[2022-09-20] MEDS: TPN 24 HR with Sodium Chloride CONC. 4 MEQ/ML 100 MEQ, Potassium Chloride TPN 50 MEQ, P... CENT\\PICC SCH (16:30)
[2022-09-20] MEDS: Enoxaparin 40 MG/0.4 ML SYR SUBCUT SCH (22:09)
[2022-09-21] MEDS: Morphine 2 MG/ML SYRINGE IV PRN ×4 (05:36→21:01)
[2022-09-21] MEDS: Magnesium Sulfate 2 GM IV (Premix) IVPB SCH (08:39)
[2022-09-21] MEDS: Multivitamins ADULT w/MIN LIQ 15 ML UDC PO SCH (08:45)
[2022-09-21] MEDS: TPN 24 HR with Sodium Chloride CONC. 4 MEQ/ML 100 MEQ, Potassium Chloride TPN 50 MEQ, P... CENT\\PICC SCH (17:05)
[2022-09-21] MEDS: Enoxaparin 40 MG/0.4 ML SYR SUBCUT SCH (21:05)
[2022-09-22] MEDS: Morphine 2 MG/ML SYRINGE IV PRN (06:17)
[2022-09-22 07:33] VITALS: BP 130/77
[2022-09-22] MEDS: Multivitamins ADULT w/MIN LIQ 15 ML UDC PO SCH (08:40)
== END 2022-09-22 08:50 | DRG 951 ==
LOC: ED 09:28 → MEDTELE 12:05 → ENDO 12:05 → SUATTDRO 08-26 13:07 → SSU 09-04 09:47 → MEDTELE 09-06 02:53 → SSU 09-11 17:22
PROVIDERS: ADMIT Internal Medicine; ATTEND Internal Medicine
PROC: O.GIEGD (2022-08-25 14:30)

== ENCOUNTER 2022-12-16 11:41 | Inpatient (IN) ==
[2022-12-16 13:52] LABS: ABS Lymphocytes 1.6 10^3/uL (1.0-4.8); ABS Monocytes 0.4 10^3/uL (0.0-1.1); ABS Neutrophils 2.2 10^3/uL (1.5-7.6); ABS Nucleated RBC 0.02 10^3/ul; Eosinophil % 0.4 %; Hematocrit 39.6 % (38-53); Hemoglobin 12.9 g/dL (13.2-16.3); Lymphocyte % 37.8 %; Mean Corpuscular Hemoglobin 26.8 pg (27-33); Mean Corpuscular Hgb Conc 32.6 g/dL (31-36); Nucleated Red Blood Cells % 0.4 /100 WBC (0.0-0.4); Platelet Count 276 10^3/uL (150-450); Red Blood Count 4.83 10^6/uL (4.06-5.63); Red Cell Distribution Width 16.1 % (12-17); White Blood Count 4.1 10^3/uL (3.6-10.2)
[2022-12-16 14:22] LABS: Albumin 4.1 g/dL (3.2-5.2); Calcium 9.5 mg/dL (8.6-10.3); Creatinine, Serum 0.84 mg/dL (0.67-1.17); Globulin 4.1 g/dL (2-4); Potassium 4.1 mmol/L (3.5-5.0); Total Bilirubin 0.7 mg/dL (0.2-1.0); Total Protein 8.2 g/dL (6.4-8.9); eGFR CKD-EPI 106.9 (>60)
[2022-12-16] MEDS ORDERED: Iodixanol (CONTRAST) 320 MG/ML 100 ML SDV IV ONE (14:24)
[2022-12-16] MEDS ORDERED: Morphine 4 MG/ML VIAL (1 ml) IV ONE (14:38)
[2022-12-16] MEDS ORDERED: D10W 500 ml BAG 500 ML IV ONE (14:38)
[2022-12-16] MEDS: Heparin 5000 UNITS/ML 1 mL VIAL SUBCUT SCH (23:19)
[2022-12-16] MEDS: OLANZapine 10 mg TAB*ODT PO SCH (23:19)
[2022-12-17] MEDS: Heparin 5000 UNITS/ML 1 mL VIAL SUBCUT SCH ×3 (05:37→20:34)
[2022-12-17] MEDS ORDERED: Dextrose 50% Syringe 50 ml 25 GM/50 ML SYRINGE IV PUSH PRN (08:14)
[2022-12-17 08:24] LABS: Albumin 3.8 g/dL (3.2-5.2); Magnesium 1.7 mg/dL (1.9-2.7); Potassium 4.2 mmol/L (3.5-5.0); Total Bilirubin 0.8 mg/dL (0.2-1.0)
[2022-12-17] MEDS: D5LR 1000 ml BAG 1,000 ML IV SCH ×2 (08:25→21:38)
[2022-12-17] MEDS: Dextrose 50% Syringe 50 ml 25 GM/50 ML SYRINGE IV PUSH PRN ×2 (08:28→20:33)
[2022-12-17 08:30] LABS: Creatinine, Serum 0.71 mg/dL (0.67-1.17); Globulin 3.7 g/dL (2-4); Total Protein 7.5 g/dL (6.4-8.9); eGFR CKD-EPI 112.5 (>60)
[2022-12-17] MEDS: OLANZapine 10 mg TAB*ODT PO SCH ×2 (08:58→20:33)
[2022-12-17] MEDS ORDERED: Magnesium Sulfate IV 1GM/100ML 1 GM/100 ML BAG IV ONE (10:15)
[2022-12-18] MEDS: Heparin 5000 UNITS/ML 1 mL VIAL SUBCUT SCH ×3 (05:26→20:00)
[2022-12-18 07:26] LABS: Albumin 3.5 g/dL (3.2-5.2); Albumin/Globulin Ratio 1.1 (1-3); Calcium 8.7 mg/dL (8.6-10.3); Creatinine, Serum 0.85 mg/dL (0.67-1.17); Globulin 3.3 g/dL (2-4); Magnesium 1.8 mg/dL (1.9-2.7); Total Bilirubin 0.5 mg/dL (0.2-1.0); Total Protein 6.8 g/dL (6.4-8.9); eGFR CKD-EPI 106.5 (>60)
[2022-12-18] MEDS: OLANZapine 10 mg TAB*ODT PO SCH ×2 (08:09→20:00)
[2022-12-18] MEDS ORDERED: Magnesium Sulfate IV 1GM/100ML 1 GM/100 ML BAG IV ONE (08:27)
[2022-12-18] MEDS ORDERED: Pneumococcal Vac 23-Polyvalent IM ONE (09:00)
[2022-12-18] MEDS: D5LR 1000 ml BAG 1,000 ML IV SCH ×2 (10:30→19:57)
[2022-12-18] MEDS ORDERED: Lorazepam PYXIS KEY PRN (17:32)
[2022-12-18] MEDS ORDERED: LORazepam 2 mg VIAL 1 ml IV PUSH PRN (17:32)
[2022-12-19] MEDS: D5LR 1000 ml BAG 1,000 ML IV SCH (04:48)
[2022-12-19] MEDS: Heparin 5000 UNITS/ML 1 mL VIAL SUBCUT SCH ×3 (04:52→22:41)
[2022-12-19] MEDS: Dextrose 50% Syringe 50 ml 25 GM/50 ML SYRINGE IV PUSH PRN (06:07)
[2022-12-19 06:09] LABS: Albumin 3.3 g/dL (3.2-5.2); Albumin/Globulin Ratio 1.1 (1-3); Calcium 8.4 mg/dL (8.6-10.3); Creatinine, Serum 0.9 mg/dL (0.67-1.17); Globulin 3.1 g/dL (2-4); Magnesium 1.8 mg/dL (1.9-2.7); Potassium 3.7 mmol/L (3.5-5.0); Total Bilirubin 0.4 mg/dL (0.2-1.0); Total Protein 6.4 g/dL (6.4-8.9); eGFR CKD-EPI 104.7 (>60)
[2022-12-19] MEDS ORDERED: D5LR 1000 ml BAG 1,000 ML IV SCH (06:11)
[2022-12-19] MEDS ORDERED: Magnesium Sulfate IV 1GM/100ML 1 GM/100 ML BAG IV ONE (07:06)
[2022-12-19] MEDS ORDERED: KCL 10 MEQ/50 ML IVPREMIX 10 MEQ/50 ML BAG IV ONE (07:06)
[2022-12-19] MEDS ORDERED: D5NS 0.9% 1000 ml BAG 1,000 ML IV SCH (08:00)
[2022-12-19] MEDS: OLANZapine 10 mg TAB*ODT PO SCH ×2 (09:17→20:33)
[2022-12-19] MEDS: TPN 24 HR with Dextrose 50% Water 500 ML, Amino Acid Infusion 10% 850 ML, Sterile Water... CENT\\PICC SCH (16:32)
[2022-12-20] MEDS: Heparin 5000 UNITS/ML 1 mL VIAL SUBCUT SCH ×3 (05:05→21:52)
[2022-12-20 06:08] LABS: Albumin 3.3 g/dL (3.2-5.2); Albumin/Globulin Ratio 1.1 (1-3); Calcium 8.4 mg/dL (8.6-10.3); Creatinine, Serum 0.67 mg/dL (0.67-1.17); Magnesium 1.8 mg/dL (1.9-2.7); Phosphorus 4.8 mg/dL (2.5-5.0); Total Bilirubin 0.4 mg/dL (0.2-1.0); Total Protein 6.3 g/dL (6.4-8.9); eGFR CKD-EPI 114.5 (>60)
[2022-12-20] MEDS ORDERED: Pneumococcal Vac 23-Polyvalent IM ONE (09:00)
[2022-12-20] MEDS: OLANZapine 10 mg TAB*ODT PO SCH ×2 (10:46→20:10)
[2022-12-20] MEDS: TPN 24 HR with Dextrose 50% Water 500 ML, Amino Acid Infusion 10% 850 ML, Sterile Water... CENT\\PICC SCH (16:49)
[2022-12-21] MEDS: Heparin 5000 UNITS/ML 1 mL VIAL SUBCUT SCH ×3 (05:58→23:28)
[2022-12-21 07:24] LABS: Albumin 3.4 g/dL (3.2-5.2); Magnesium 1.5 mg/dL (1.9-2.7); Potassium 3.9 mmol/L (3.5-5.0); Total Bilirubin 0.5 mg/dL (0.2-1.0)
[2022-12-21 07:30] LABS: Albumin/Globulin Ratio 1.1 (1-3); Creatinine, Serum 0.65 mg/dL (0.67-1.17); Phosphorus 4.4 mg/dL (2.5-5.0); Total Protein 6.4 g/dL (6.4-8.9); eGFR CKD-EPI 115.5 (>60)
[2022-12-21] MEDS ORDERED: Magnesium Sulf 4 GM/100 ML IV 4,000 MG/100 ML BAG IVPB ONE (07:43)
[2022-12-21] MEDS: OLANZapine 10 mg TAB*ODT PO SCH ×2 (08:04→19:48)
[2022-12-21 15:22] LABS: C Reactive Protein 29.2 mg/L (<8.01)
[2022-12-21] MEDS ORDERED: TPN 24 HR with Dextrose 50% Water 500 ML, Amino Acid Infusion 10% 850 ML, Sterile Water... CENT\\PICC SCH (17:00)
[2022-12-22] MEDS: Heparin 5000 UNITS/ML 1 mL VIAL SUBCUT SCH ×3 (05:56→21:27)
[2022-12-22 06:11] LABS: ABS Eosinophils 0.1 10^3/uL (0.0-0.5); ABS Lymphocytes 1.4 10^3/uL (1.0-4.8); ABS Monocytes 0.3 10^3/uL (0.0-1.1); ABS Neutrophils 1.5 10^3/uL (1.5-7.6); ABS Nucleated RBC 0.01 10^3/ul; Eosinophil % 1.7 %; Hematocrit 36.3 % (38-53); Hemoglobin 11.9 g/dL (13.2-16.3); Lymphocyte % 43.3 %; Mean Corpuscular Hemoglobin 26.2 pg (27-33); Mean Corpuscular Hgb Conc 32.8 g/dL (31-36); Mean Corpuscular Volume 80.1 fL (80-97); Mean Platelet Volume 8.1 fL (7.5-11.2); Nucleated Red Blood Cells % 0.3 /100 WBC (0.0-0.4); Platelet Count 180 10^3/uL (150-450); Red Blood Count 4.54 10^6/uL (4.06-5.63); Red Cell Distribution Width 16.5 % (12-17); White Blood Count 3.3 10^3/uL (3.6-10.2)
[2022-12-22 06:41] LABS: Albumin 3.3 g/dL (3.2-5.2); Calcium 8.6 mg/dL (8.6-10.3); Magnesium 1.8 mg/dL (1.9-2.7); Potassium 4.6 mmol/L (3.5-5.0); Total Bilirubin 0.6 mg/dL (0.2-1.0)
[2022-12-22 06:47] LABS: Albumin/Globulin Ratio 1.1 (1-3); Creatinine, Serum 0.73 mg/dL (0.67-1.17); Phosphorus 5.3 mg/dL (2.5-5.0); Total Protein 6.3 g/dL (6.4-8.9); eGFR CKD-EPI 111.5 (>60)
[2022-12-22] MEDS: OLANZapine 10 mg TAB*ODT PO SCH ×2 (08:09→21:27)
[2022-12-22] MEDS ORDERED: Magnesium Sulf 4 GM/100 ML IV 4,000 MG/100 ML BAG IVPB ONE (11:16)
[2022-12-22 14:04] LABS: INR 1.16 (0.88-1.18)
[2022-12-22] MEDS ORDERED: fentaNYL 100 mcg/2 ml 50 MCG/ML VIAL ONE (14:24)
[2022-12-22] MEDS ORDERED: TPN 24 HR with Dextrose 50% Water 500 ML, Amino Acid Infusion 10% 850 ML, Sterile Water... CENT\\PICC SCH (17:00)
[2022-12-22] MEDS ORDERED: Alteplase (CATHFLO) 2 MG VIAL IV ONE (18:20)
[2022-12-23 06:37] LABS: Albumin 3.5 g/dL (3.2-5.2); Calcium 8.6 mg/dL (8.6-10.3); Magnesium 1.9 mg/dL (1.9-2.7); Potassium 4.8 mmol/L (3.5-5.0); Total Bilirubin 0.6 mg/dL (0.2-1.0)
[2022-12-23] MEDS: Heparin 5000 UNITS/ML 1 mL VIAL SUBCUT SCH ×3 (06:39→21:46)
[2022-12-23 06:43] LABS: Albumin/Globulin Ratio 1.2 (1-3); Creatinine, Serum 0.64 mg/dL (0.67-1.17); Globulin 2.9 g/dL (2-4); Phosphorus 4.6 mg/dL (2.5-5.0); Total Protein 6.4 g/dL (6.4-8.9); eGFR CKD-EPI 116.1 (>60)
[2022-12-23] MEDS: OLANZapine 10 mg TAB*ODT PO SCH ×2 (11:00→21:46)
[2022-12-23] MEDS ORDERED: TPN 24 HR with Dextrose 50% Water 500 ML, Amino Acid Infusion 10% 850 ML, Sterile Water... CENT\\PICC SCH (17:00)
[2022-12-24] MEDS: Heparin 5000 UNITS/ML 1 mL VIAL SUBCUT SCH ×3 (06:37→21:45)
[2022-12-24 06:54] LABS: Albumin 3.3 g/dL (3.2-5.2); Albumin/Globulin Ratio 1.1 (1-3); Calcium 8.6 mg/dL (8.6-10.3); Creatinine, Serum 0.6 mg/dL (0.67-1.17); Magnesium 1.7 mg/dL (1.9-2.7); Phosphorus 3.9 mg/dL (2.5-5.0); Potassium 4.3 mmol/L (3.5-5.0); Total Bilirubin 0.4 mg/dL (0.2-1.0); Total Protein 6.3 g/dL (6.4-8.9); eGFR CKD-EPI 118.3 (>60)
[2022-12-24] MEDS: OLANZapine 10 mg TAB*ODT PO SCH ×2 (08:52→21:45)
[2022-12-24] MEDS ORDERED: Magnesium Sulf 4 GM/100 ML IV 4,000 MG/100 ML BAG IVPB ONE (11:04)
[2022-12-24] MEDS ORDERED: TPN 24 HR with Dextrose 50% Water 500 ML, Amino Acid Infusion 10% 850 ML, Sterile Water... CENT\\PICC SCH (17:00)
[2022-12-25] MEDS: Heparin 5000 UNITS/ML 1 mL VIAL SUBCUT SCH ×3 (08:13→22:43)
[2022-12-25] MEDS: OLANZapine 10 mg TAB*ODT PO SCH ×2 (08:13→19:46)
[2022-12-25 10:48] LABS: Albumin 3.3 g/dL (3.2-5.2); Albumin/Globulin Ratio 1.1 (1-3); Calcium 8.5 mg/dL (8.6-10.3); Creatinine, Serum 0.64 mg/dL (0.67-1.17); Globulin 3.1 g/dL (2-4); Magnesium 1.7 mg/dL (1.9-2.7); Phosphorus 4.1 mg/dL (2.5-5.0); Potassium 4.9 mmol/L (3.5-5.0); Total Bilirubin 0.4 mg/dL (0.2-1.0); Total Protein 6.4 g/dL (6.4-8.9); eGFR CKD-EPI 116.1 (>60)
[2022-12-25] MEDS: TPN 24 HR with Dextrose 50% Water 500 ML, Amino Acid Infusion 10% 850 ML, Sterile Water... CENT\\PICC SCH (17:20)
[2022-12-26] MEDS: Heparin 5000 UNITS/ML 1 mL VIAL SUBCUT SCH ×3 (05:43→20:57)
[2022-12-26 06:52] LABS: Albumin 3.3 g/dL (3.2-5.2); Calcium 8.5 mg/dL (8.6-10.3); Magnesium 1.6 mg/dL (1.9-2.7); Potassium 4.5 mmol/L (3.5-5.0); Total Bilirubin 0.3 mg/dL (0.2-1.0)
[2022-12-26 06:59] LABS: Albumin/Globulin Ratio 1.2 (1-3); Creatinine, Serum 0.58 mg/dL (0.67-1.17); Globulin 2.7 g/dL (2-4); Phosphorus 4.2 mg/dL (2.5-5.0); eGFR CKD-EPI 119.6 (>60)
[2022-12-26] MEDS ORDERED: Magnesium Sulfate 2 gm BAG 2 GM/50 ML BAG IVPB ONE (07:56)
[2022-12-26] MEDS: OLANZapine 10 mg TAB*ODT PO SCH ×2 (08:23→20:54)
[2022-12-26] MEDS: TPN 24 HR with Dextrose 50% Water 500 ML, Amino Acid Infusion 10% 850 ML, Sterile Water... CENT\\PICC SCH (17:28)
[2022-12-26] MEDS: Morphine 2 MG/ML SYRINGE IV PRN (20:51)
[2022-12-27] MEDS: Morphine 2 MG/ML SYRINGE IV PRN ×2 (06:35→11:41)
[2022-12-27] MEDS: Heparin 5000 UNITS/ML 1 mL VIAL SUBCUT SCH ×2 (06:43→15:38)
[2022-12-27 06:53] LABS: ABS Lymphocytes 1.1 10^3/uL (1.0-4.8); ABS Monocytes 0.3 10^3/uL (0.0-1.1); ABS Neutrophils 1.1 10^3/uL (1.5-7.6); Eosinophil % 1.8 %; Hematocrit 34.5 % (38-53); Hemoglobin 11.4 g/dL (13.2-16.3); Lymphocyte % 42.1 %; Mean Corpuscular Hgb Conc 33.1 g/dL (31-36); Mean Corpuscular Volume 81.6 fL (80-97); Mean Platelet Volume 9.1 fL (7.5-11.2); Nucleated Red Blood Cells % 0.2 /100 WBC (0.0-0.4); Platelet Count 157 10^3/uL (150-450); Red Blood Count 4.22 10^6/uL (4.06-5.63); Red Cell Distribution Width 16.4 % (12-17); White Blood Count 2.6 10^3/uL (3.6-10.2)
[2022-12-27 07:02] LABS: Albumin 3.4 g/dL (3.2-5.2); Albumin/Globulin Ratio 1.1 (1-3); Calcium 8.6 mg/dL (8.6-10.3); Creatinine, Serum 0.63 mg/dL (0.67-1.17); Globulin 3.1 g/dL (2-4); Magnesium 1.7 mg/dL (1.9-2.7); Phosphorus 4.1 mg/dL (2.5-5.0); Potassium 4.3 mmol/L (3.5-5.0); Total Bilirubin 0.3 mg/dL (0.2-1.0); Total Protein 6.5 g/dL (6.4-8.9); eGFR CKD-EPI 116.6 (>60)
[2022-12-27] MEDS ORDERED: Magnesium Sulfate IV 1GM/100ML 1 GM/100 ML BAG IV ONE (08:09)
[2022-12-27] MEDS: OLANZapine 10 mg TAB*ODT PO SCH (09:12)
[2022-12-27 14:51] VITALS: BP 114/71
== END 2022-12-27 16:20 | disposition home or self-care (01) | DRG 254 ==
LOC: ED 11:41 → SUATTDRO 16:35 → EDHOLD 16:35 → SSU 22:04
PROVIDERS: ADMIT Internal Medicine; ATTEND Internal Medicine